=== PATIENT | female | born 1990 | race Two or more races ===

== ENCOUNTER 2021-07-19 09:38 | Outpatient (CLI) | payer OTHER ==
--- NOTE | 2021-07-19 14:24 | MRI Report ---
PROCEDURE: Shoulder RT W/O INDICATIONS: PAIN IN SHOULDER TECHNIQUE: Noncontrast oblique coronal T2 fast spin echo with fat saturation, oblique sagittal T1 spin echo and T2 fast spin echo with fat saturation, axial T1 spin echo and T2 fast spin echo with fat saturation t hrough the shoulder. COMPARISON: None. FINDINGS: Image quality: Excellent. Rotator cuff: The supraspinatus, infraspinatus, and subscapularis tendons appear intact throughout. No rotator cuff muscle atrophy on sagittal images. Bones and bursae: No bone marrow contusions or fractures. No acromioclavicular joint degeneration. The acromion demonstrates conventional anatomy, without an os acromiale. No pathologic subacromial/ subdeltoid bursal fluid is present. Capsule and soft tissues: In the absence of intra-articular contrast, the labrum and glenohumeral li gaments appear intact. The long head of the biceps tendon demonstrates normal location and morpholog y. The rotator interval appears normal, without fibrosis. The coracohumeral ligament is normal in t hickness. IMPRESSION: No rotator cuff tear. No explanation for shoulder pain. Reviewed by: Mary Goel MD on 07/19/2021 2:23 PM PDT Approved by: Mary Goel MD on 07/19/2021 2:23 PM PDT Station ID: [id number]
== END 2021-07-19 09:39 | disposition home or self-care (01) ==
LOC: DI 09:38
PROVIDERS: ATTEND Student in an Organized Health Care Education/Training Program
DX: M25.511 Pain in right shoulder (principal)

== ENCOUNTER 2021-08-15 07:21 | Outpatient (CLI) | payer OTHER ==
--- NOTE | 2021-08-15 09:37 | MRI Report ---
PROCEDURE: Cervical Spine W/O INDICATIONS: CERVICAL RADICULOPATY AND PAIN OVER SCAPULA TECHNIQUE: Noncontrast sagittal T1 spin echo and T2 fast spin echo, sagittal STIR, foraminal oblique sagittal T2 fast spin echo, and axial gradient echo or T2 fast spin echo through the cervical spine. COMPARISON: None. FINDINGS: Image quality: Excellent. Alignment and Curvature: There is normal bony alignment. Bone Marrow: Marrow demonstrates normal overall signal. Spinal Cord: Visualized spinal cord has normal size and signal. No cerebellar tonsillar herniation. Paraspinous Soft Tissues: No paravertebral masses. Prevertebral soft tissues are normal in thicknes s. C2-C3: No canal stenosis or foraminal stenosis. C3-C4: Mild disc bulge. No canal stenosis or foraminal stenosis. C4-C5: Mild disc bulge. No canal stenosis or foraminal stenosis. C5-C6: Mild disc bulge. Mild left facet hypertrophy. No canal stenosis or foraminal stenosis. C6-C7: Mild disc bulge. No canal stenosis or foraminal stenosis. C7-T1: No canal stenosis or foraminal stenosis. IMPRESSION: 1. Mild multilevel disc bulges, minimal spondylitic change. 2. No cervical canal stenosis or foraminal stenosis. Reviewed by: Jimmie Rice MD on 08/15/2021 9:36 AM PDT Approved by: Jimmie Rice MD on 08/15/2021 9:36 AM PDT Station ID: [id number]
--- NOTE | 2021-08-15 09:38 | MRI Report ---
PROCEDURE: Thoracic Spine W/O INDICATIONS: CERVICAL RADICULOPATY AND PAIN OVER SCAPULA TECHNIQUE: Noncontrast sagittal T1 spine echo and T2 fast spin echo, sagittal STIR, axial T1 and T2 fast spin ec ho through the thoracic spine. COMPARISON: None. FINDINGS: Image quality: Excellent. Alignment and Curvature: There is normal bony alignment. Bone Marrow: Marrow is of normal overall signal. No acute vertebral body compression fractures. Spinal Cord: Visualized spinal cord is normal in size and signal. Paraspinous Soft Tissues: No paravertebral masses. Miscellaneous: On axial images, central canal and foramina appear widely patent at all scanned level s. IMPRESSION: Unremarkable thoracic spine MRI. Normal cord. No canal stenosis or foraminal stenosis. Reviewed by: Jimmie Rice MD on 08/15/2021 9:37 AM PDT Approved by: Jimmie Rice MD on 08/15/2021 9:37 AM PDT Station ID: [id number]
== END 2021-08-15 07:22 | disposition home or self-care (01) ==
LOC: DI 07:21
PROVIDERS: ATTEND Student in an Organized Health Care Education/Training Program
DX: M25.519 Pain in unspecified shoulder (principal); M47.22 Other spondylosis with radiculopathy, cervical region